=== PATIENT | female | born 1965 | race Caucasian/White ===

== ENCOUNTER 2020-08-07 05:12 | Day surgery (SDC) | payer MEDICARE, MEDICAID ==
[2020-08-05 11:19] LABS: ANION GAP 2 mmol/L (5-15); CALCIUM 9.3 mg/dL (8.5-10.1); CHLORIDE 111 mmol/L (98-107); CREATININE 0.86 mg/dL (0.55-1.02)
[2020-08-05 11:24] LABS: BASOPHILS % (AUTO) 1 % (0-1); EOSINOPHILS % (AUTO) 3 % (1-7); LYMPHOCYTES % (AUTO) 21 % (22-44); MEAN CORPUSCULAR HEMOGLOBIN 24.9 pg (27.0-34.8); MEAN CORPUSCULAR HGB CONC 32.2 g/dL (32.4-35.8); MEAN PLATELET VOLUME 9.2 fL (7.4-10.4); MONOCYTES % (AUTO) 9 % (2-9); NEUTROPHILS % (AUTO) 66 % (42-75); PLATELET COUNT 345 x10^3/uL (130-400); RED BLOOD COUNT 5.38 x10^6/uL (3.82-5.3)
[2020-08-05 11:28] LABS: INTERNATIONAL NORMALIZED RATIO 1.01 (0.93-1.1); PROTHROMBIN TIME 10.7 Seconds (9.6-11.5)
[2020-08-05 11:34] LABS: MD NO
[~2020-08-07] VITALS: Ht 182.9 cm; Wt 140.0 kg
[~2020-08-07 05:12] MED LIST: NAPR220C2 PO
[2020-08-07 06:05] VITALS: BP 149/95
[2020-08-07] MEDS ORDERED: MIDAZOLAM 1 MG/ML, 2ML ONE (06:19)
[2020-08-07] MEDS ORDERED: FENTANYL PF 250 MCG/5ML ONE ×2 (06:24→07:30)
[2020-08-07] MEDS ORDERED: KETOROLAC 60 MG/2 ML ONE (06:25)
[2020-08-07] MEDS ORDERED: ROPIvacaine/PF 0.5%, 20 ML ONE (06:25)
[2020-08-07] MEDS ORDERED: VANCOMYCIN 1,000 MG ONE (06:25)
[2020-08-07] MEDS ORDERED: EPINEPHRINE 1 MG/ML, 1ML ONE (06:25)
[2020-08-07] MEDS ORDERED: SODIUM CHLORIDE 0.9% 50 ML ONE (06:25)
[2020-08-07] MEDS ORDERED: ROPIvacaine/PF 0.5%, 30 ML ONE (06:25)
[2020-08-07] MEDS ORDERED: TRANEXAMIC ACID 100 MG/ML, 10ML ONE ×2 (06:25)
[2020-08-07] MEDS ORDERED: LACTATED RINGERS 1,000 ML IV SCH (06:30)
[2020-08-07] MEDS ORDERED: CHLORHEXIDINE 15 ML UDC MM ONE (06:30)
[2020-08-07] MEDS ORDERED: VANCOMYCIN PER PHARMACY MC PRN (06:30)
[2020-08-07] MEDS ORDERED: VANCOMYCIN 2,000 MG in SODIUM CHLORIDE 0.9% 500 ML IV ONE (06:30)
[2020-08-07] MEDS ORDERED: GABAPENTIN 300 MG CAPSULE PO ONE (06:30)
[2020-08-07] MEDS ORDERED: ACETAMINOPHEN 500 MG TABLET PO ONE (06:30)
[2020-08-07] MEDS ORDERED: METOPROLOL 1 MG/ML, 5ML ONE (06:54)
[2020-08-07] MEDS ORDERED: DEXAMETHASONE 4 MG/ML, 1ML ONE (06:54)
[2020-08-07] MEDS ORDERED: DIPHENHYDRAMINE 50 MG CAPSULE PO PRN (07:00)
[2020-08-07] MEDS ORDERED: HYDROcodone/APAP 5/325 TABLET PO PRN (07:00)
[2020-08-07] MEDS ORDERED: ONDANSETRON 2MG/ML, 2ML IV PRN (07:00)
[2020-08-07] MEDS ORDERED: MAGNESIUM HYDROXIDE 8%, 30ML UDC PO PRN (07:00)
[2020-08-07] MEDS ORDERED: NS + 20MEQ KCL 1,000 ML IV SCH (07:00)
[2020-08-07] MEDS ORDERED: HYDROmorphone 1 MG/ML, 1ML INJ IV PRN (07:00)
[2020-08-07] MEDS ORDERED: ACETAMINOPHEN 650 MG/20.3 ML UDC PO PRN (07:00)
[2020-08-07] MEDS ORDERED: BISACODYL 10 MG SUPP PR PRN (07:00)
[2020-08-07] MEDS ORDERED: SENNA/DOCUSATE TABLET PO PRN (07:00)
[2020-08-07] MEDS ORDERED: ONDANSETRON 4 MG TABLET PO PRN (07:00)
[2020-08-07] MEDS ORDERED: ZOLPIDEM 5MG TABLET PO PRN (07:00)
[2020-08-07] MEDS ORDERED: OXYcodone IR 5MG TABLET PO PRN (07:00)
[2020-08-07] MEDS ORDERED: DIAZEPAM 5 MG/ML, 2ML IVPush PRN (07:30)
[2020-08-07] MEDS ORDERED: MEPERIDINE/PF 25MG/0.5ML IVPush PRN (07:30)
[2020-08-07] MEDS ORDERED: ALBUTEROL SULFATE 2.5 MG/3 ML NPPB PRN (07:30)
[2020-08-07] MEDS ORDERED: hydrALAzine 20 MG/ML, 1ML IV PRN (07:30)
[2020-08-07] MEDS ORDERED: OXYcodone 5 MG/5 ML ORAL.SOL UDC PO PRN (07:30)
[2020-08-07] MEDS ORDERED: LABETALOL 5MG/ML, 20ML IV PRN (07:30)
[2020-08-07] MEDS ORDERED: PROMETHAZINE 25 MG/ML, 1ML IV PRN (07:30)
[2020-08-07] MEDS ORDERED: ACETAMINOPHEN 325 MG TABLET PO PRN (07:30)
[2020-08-07] MEDS ORDERED: CEFAZOLIN 1,000 MG ONE (08:06)
[2020-08-07] MEDS ORDERED: PROPOFOL 10 MG/ML, 20ML ONE (08:06)
[2020-08-07] MEDS ORDERED: SUCCINYLCHOLINE 20 MG/ML, 10ML ONE (08:06)
[2020-08-07] MEDS ORDERED: GLYCOPYRROLATE 0.2MG/1ML, 5ML ONE (08:06)
[2020-08-07] MEDS ORDERED: ONDANSETRON 2MG/ML, 2ML ONE (08:06)
[2020-08-07] MEDS ORDERED: ROCURONIUM 10MG/ML,5ML ONE (08:06)
[2020-08-07] MEDS ORDERED: NEOSTIGMINE 1 MG/ML, 10ML ONE (08:06)
[2020-08-07] MEDS: FENTANYL PF 100 MCG/2ML IV PRN ×6 (08:41→09:22)
[2020-08-07] MEDS ORDERED: OXYcodone 5 MG/5 ML ORAL.SOL UDC ONE (08:42)
[2020-08-07] MEDS ORDERED: FENTANYL PF 100 MCG/2ML ONE ×2 (08:42→09:04)
[2020-08-07] MEDS ORDERED: DOCUSATE 100 MG CAPSULE PO SCH (09:00)
[2020-08-07] MEDS ORDERED: HYDROmorphone 1 MG/ML, 1ML INJ ONE (09:04)
[2020-08-07] MEDS: HYDROmorphone 2 MG/ML, 1ML IVPush PRN ×2 (09:07→09:22)
[2020-08-07 12:15] VITALS: BP 128/83
[2020-08-07] MEDS ORDERED: OXYC5TAB2 PO (14:03)
[2020-08-07] MEDS ORDERED: TRAM100T39 PO (14:04)
[2020-08-07] MEDS ORDERED: MELO7.5T31 PO (14:05)
[2020-08-07] MEDS ORDERED: CEPH500T PO (14:05)
[2020-08-07] MEDS ORDERED: DOXY50TA9 PO (14:06)
[2020-08-07] MEDS ORDERED: CEFAZOLIN PMX 2GM/50ML 50 ML IVPB SCH (15:00)
[2020-08-07] MEDS ORDERED: ASPIRIN 81 MG TABLET EC PO SCH (18:00)
[2020-08-08] MEDS ORDERED: DEXAMETHASONE 4 MG/ML, 1ML IVPush SCH (06:00)
== END 2020-08-07 14:30 | disposition home or self-care (01) ==
LOC: SDC 05:12 → 4NE 09:48 → OUT 14:30 → EDSTATUS 14:45
PROVIDERS: ATTEND Orthopaedic Surgery
DX: M17.12 Unilateral primary osteoarthritis, left knee (principal); M25.762 Osteophyte, left knee; M24.562 Contracture, left knee; G89.18 Other acute postprocedural pain; M81.0 Age-related osteoporosis without current pathological fracture; I10 Essential (primary) hypertension; E66.01 Morbid (severe) obesity due to excess calories; Z20.828 Contact with and (suspected) exposure to other viral communicable diseases; Z79.01 Long term (current) use of anticoagulants; Z79.1 Long term (current) use of non-steroidal anti-inflammatories (NSAID); Z79.891 Long term (current) use of opiate analgesic; Z79.899 Other long term (current) drug therapy; Z86.718 Personal history of other venous thrombosis and embolism
CPT/HCPCS: 27447; 36415; 64447; 80048; 83036; 85025; 85610; 85730; 87081; 87147; 93005; 97110; 97161; 97165; C1713; C1776; J0171; J0330; J0690; J1100; J1170; J1885; J2250; J2405; J2704; J2710; J2795; J3010; J3370; J7040; J7120; U0003; G0378